=== PATIENT | female | born 2000 | race Caucasian/White ===

== ENCOUNTER 2021-07-04 19:58 | Emergency (ER) | payer BC, OTHER ==
[~2021-07-04] VITALS: Ht 165.1 cm; Wt 54.4 kg
[2021-07-04 20:00] VITALS: BP 124/73
--- NOTE | 2021-07-04 20:03 | NUR ---
TO LOBBY A/W BED AMBULATORY
--- NOTE | 2021-07-04 21:19 | NUR ---
PT SEEN AND ASSESSED BY ERMD. NO NURSING INTERVENTIONS NEEDED
[2021-07-04 21:20] VITALS: BP 124/73
== END 2021-07-04 21:19 | disposition home or self-care (01) ==
LOC: MED 19:58
DX: S40.022A Contusion of left upper arm, initial encounter (principal); F12.90 Cannabis use, unspecified, uncomplicated; W19.XXXA Unspecified fall, initial encounter; Y93.21 Activity, ice skating; Y92.89 Other specified places as the place of occurrence of the external cause; Y99.8 Other external cause status
CPT/HCPCS: 73080; 73090; 73110; 73130; 99284

== ENCOUNTER 2021-07-14 16:34 | Emergency (ER) | payer BC ==
[~2021-07-14] VITALS: Ht 165.1 cm; Wt 54.4 kg
[2021-07-14 16:40] VITALS: BP 110/60
[2021-07-14 19:00] VITALS: BP 110/60
--- NOTE | 2021-07-14 19:00 | NUR ---
Gaetano hardy in [facility] - 07/14/21 at 1907 by [id number] PATIENT LEFT WITHOUT BEING SEEN BY DANIEL MENCHACA. NO FURTHER CARE PROVIDED FOR PATIENT.
--- NOTE | 2021-07-14 19:00 | NUR ---
PATIENT ELOPED FROM FACILITY. DISCHARGE INSTRUCTIONS NOT GIVEN TO PATIENT. DANIEL MENCHACA NOTIFIED.
[2021-07-14 19:03] LABS: APPEARANCE,URINE CLEAR (CLEAR); BILIRUBIN,URINE NEGATIVE (NEGATIVE); BLOOD, URINE NEGATIVE (NEGATIVE); COLOR,URINE YELLOW (YELLOW); LEUKOCYTE ESTERASE ,URINE NEGATIVE (NEGATIVE); NITRITE, URINE NEGATIVE (NEGATIVE); PH,URINE 6.5 (5.0-9.0); UGLUCOSE NEGATIVE (NEGATIVE)
== END 2021-07-14 19:00 | disposition left against medical advice (07) ==
LOC: MED 16:34
DX: M54.9 Dorsalgia, unspecified (principal)
CPT/HCPCS: 81003; 81025; 99283